=== PATIENT | female | born 1985 | race Caucasian/White ===

== ENCOUNTER 2020-07-02 18:15 | Emergency (ER) | payer MEDICAID ==
[~2020-07-02] VITALS: Ht 149.9 cm; Wt 54.5 kg
[2020-07-02] MEDS ORDERED: MELA5TAB3 PO (18:30)
[2020-07-02] MEDS ORDERED: DIPH25CA85 PO (18:30)
[2020-07-02] MEDS ORDERED: SERT50TA12 PO (18:30)
[2020-07-02] MEDS ORDERED: [UNRECOGNIZED DRUG - OTHER] PO (18:30)
[2020-07-02 19:59] VITALS: BP 135/82
[2020-07-02] MEDS ORDERED: ZOLPIDEM TARTRATE 5 MG TABLET PO ONE (20:30)
[2020-07-02] MEDS ORDERED: ZOLPIDEM TARTRATE 10 MG TABLET PO ONE (20:30)
== END 2020-07-02 20:44 | disposition home or self-care (01) ==
LOC: EMS 18:15
DX: G47.00 Insomnia, unspecified (principal)